=== PATIENT | male | born 1985 | race Caucasian/White ===

== ENCOUNTER 2018-12-22 16:42 | Emergency (ER) | payer SELFPAY ==
--- NOTE | 2018-12-22 17:11 | ER Document Report ---
ED Medical Screen (RME) - General Chief Complaint: Leg Injury Stated Complaint: LEFT LEG INJURY Time Seen by Provider: 12/22/18 17:08 Mode of Arrival: Ambulatory Information source: Patient Notes: 33-year-old male presented to ED for an abscess to the left upper leg just above the knee. 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 He states he has been using peroxide up to yesterday once a day. He states the area is gotten bigger and more painful so he came to the emergency room to have it examined. He is alert oriented respirations regular and unlabored speaking in full sentences. He states he smokes 2 packs of cigarettes a day, drinks weekly, and no illicit drugs. I have greeted and performed a rapid initial assessment of this patient. A comprehensive ED assessment and evaluation of the patient, analysis of test results and completion of medical decision making process will be conducted by an additional ED providers. TRAVEL OUTSIDE OF THE [place] IN LAST 30 DAYS: No Past Medical History - Past Medical History Cardiac Medical History: Reports: Hx Hypertension - Immunizations Hx Diphtheria, Pertussis, Tetanus Vaccination: No - unk Physical Exam - Vital signs Vitals: Temp Pulse Resp BP Pulse Ox 98.6 F 71 18 138/67 H 97 12/22/18 16:47 12/22/18 16:47 12/22/18 16:47 12/22/18 16:47 12/22/18 16:47 Course - Vital Signs Vital signs: Temp Pulse Resp BP Pulse Ox 98.6 F 71 18 138/67 H 97 12/22/18 16:47 12/22/18 16:47 12/22/18 16:47 12/22/18 16:47 12/22/18 16:47
--- NOTE | 2018-12-22 18:40 | RADIOLOGY REPORT (SQ) ---
EXAM DESCRIPTION: U/S EXTREMITY NONVASCULAR LTD COMPLETED DATE/TIME: 12/22/2018 6:18 pm REASON FOR STUDY: left leg above knee abscess COMPARISON: None. TECHNIQUE: Dynamic and static grayscale images acquired of the localized site of clinical concern an d recorded on PACS. Additional selected color Doppler and spectral images recorded. SITE OF CONCERN: Left knee LIMITATIONS: None. FINDINGS: SKIN AND SUBCUTANEOUS TISSUES: Diffuse subcutaneous edema with a 3.1 x 1.0 x 3.9 cm multil ocular complex fluid collection. No surrounding hyperemia or hypervascular wall. DEEP SOFT TISSUES/MUSCLES: Grossly normal. VASCULAR: No abnormalities demonstrated on the images provided. OTHER: No other significant finding. IMPRESSION: 3.1 x 1.0 x 3.9 cm subcutaneous multilocular complex fluid collection may represent absc ess versus hematoma. TECHNICAL DOCUMENTATION: JOB ID: [id number] [employer] in [place]- All Rights Reserved Reading location - IP/workstation name: [email or web address]
[2018-12-22] MEDS ORDERED: OXYCODONE-ACETAMINOPHEN 5-325 MG TABLET PO ONE (20:46)
[2018-12-22] MEDS ORDERED: CEPHALEXIN 500 MG CAPSULE PO ONE (20:47)
[2018-12-22] MEDS ORDERED: SULFAMETHOXAZOLE/TRIMETHOPRIM 800-160 MG TABLET PO ONE (20:47)
[2018-12-22] MEDS ORDERED: LIDOCAINE 1% INJ-PF (10 MG/ML) 30 ML SDV INFIL ONE (20:47)
--- NOTE | 2018-12-22 20:47 | ER Document Report ---
HPI - HPI Time Seen by Provider: 12/22/18 17:08 Pain Level: 3 Notes: Patient is an otherwise healthy 33-year-old male presenting to the emergency department with concern for abscess to his left knee. Patient reports this is been there several days. He does report it has been draining. 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 Denies any fevers or chills. - REPRODUCTIVE Reproductive: DENIES: : - MUSCULOSKELETAL Musculoskeletal: REPORTS: Extremity pain Past Medical History - General Information source: Patient - Social History Smoking Status: Current Every Day Smoker Frequency of alcohol use: None Drug Abuse: None Family History: Reviewed & Not Pertinent Patient has suicidal ideation: No Patient has homicidal ideation: No - Past Medical History Cardiac Medical History: Reports: Hx Hypertension - Immunizations Hx Diphtheria, Pertussis, Tetanus Vaccination: No - unk Vertical Provider Document - CONSTITUTIONAL Notes: PHYSICAL EXAMINATION: GENERAL: Well-appearing, well-nourished and in no acute distress. HEAD: Atraumatic, normocephalic. EYES: Pupils equal round extraocular movements intact, conjunctiva are normal. ENT: Nares patent NECK: Normal range of motion LUNGS: No respiratory distress Musculoskeletal: Normal range of motion NEUROLOGICAL: Normal speech, normal gait. PSYCH: Normal mood, normal affect. SKIN: Large area of erythema with induration fluctuance noted just superior to left knee. There is no streaking from the area. - INFECTION CONTROL TRAVEL OUTSIDE OF THE [place] IN LAST 30 DAYS: No Course - Re-evaluation Re-evalutation: Abscess was incised and drained, see procedure note, patient tolerated well. Large amount of purulent drainage obtained. Patient will be started on doxycycline for vibrio coverage as patient not only has an abscess but it has also been exposed to salt water. Patient verbalizes understanding and agreement with ED return precautions. The patient's emergency department workup and current diagnosis were explained to the patient and or family. Follow-up instructions were provided. Medications if prescribed were discussed. Instructions for when to return to the emergency department including specific worrisome symptoms were discussed with the patient and/or family. - Vital Signs Vital signs: Temp Pulse Resp BP Pulse Ox 98.6 F 71 18 138/67 H 97 12/22/18 16:47 12/22/18 16:47 12/22/18 16:47 12/22/18 16:47 12/22/18 16:47 Procedures - Incision and Drainage Left knee Type: Simple Anesthetic type: 1% Lidocaine Blade size: 11 I&D procedure: Betadine prep applied Incision Method: Incision made by scalpel Discharge - Discharge Clinical Impression: Abscess Condition: Stable Disposition: HOME, SELF-CARE Additional Instructions: You were seen for an abscess that required drainage. Please clean this area with soap and water twice daily and apply a topical antibiotic. Dress the area after each cleaning. Please return if you develop fever, vomiting, the pain at the site worsens, you notice spreading redness from the area, or you have any other symptoms that are concerning to you. Prescriptions: Doxycycline Hyclate 100 mg PO BID #14 capsule Hydrocodone Bit/Acetaminophen [Hydrocodon-Acetaminophen 5-325] 1 each PO Q6H #10 tablet
[2018-12-22 21:53] VITALS: BP 130/68
== END 2018-12-22 21:53 | disposition home or self-care (01) ==
LOC: ER 16:42
DX: L02.416 Cutaneous abscess of left lower limb (principal); F17.200 Nicotine dependence, unspecified, uncomplicated; I10 Essential (primary) hypertension
CPT/HCPCS: 76882; 10060; J3490; 99283

== ENCOUNTER 2020-02-20 18:30 | Emergency (ER) | payer SELFPAY ==
[2020-02-20 18:40] VITALS: BP 158/93
[2020-02-20] MEDS ORDERED: KETOROLAC TROMETHAMINE 60 MG/2 ML SDV IM ONE (18:43)
[2020-02-20] MEDS ORDERED: CYCLOBENZAPRINE HCL 10 MG TABLET PO ONE (18:43)
[2020-02-20] MEDS ORDERED: HYDROCODONE/ACETAMINOPHEN 5-325 MG TABLET PO ONE (18:43)
--- NOTE | 2020-02-20 18:49 | ER Document Report ---
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 Patient is not sure whether he may have injured himself while working. States he has had problems with his back in the past has never gone to orthopedics about it because he does not have insurance. Denies incontinence of urine or bowel. Denies perineal numbness. Pain is worse with movement. ROS: See HPI - all other systems were reviewed and are otherwise negative Constitutional: no fever : no dysuria Integumentary: no rash Allergy: no hives Musculoskeletal: no extremity pain or swelling, positive back pain Neurological: no numbness/tingling, no weakness MEDICATIONS: I agree with the patient medications as charted by the RN. ALLERGIES: I agree with the allergies as charted by the RN. PAST MEDICAL HISTORY/PAST SURGICAL HISTORY: Reviewed and agree as charted by RN. SOCIAL HISTORY: Reviewed and agree as charted by RN. FAMILY HISTORY: No significant familial comorbid conditions directly related to patient complaint EXAM: Reviewed vital signs as charted by RN. CONSTITUTIONAL: Alert and oriented and responds appropriately to questions. Well-appearing; well-nourished HEAD: Normocephalic; atraumatic EYES: Conjunctivae clear, sclerae non-icteric ENT: normal nose; no rhinorrhea; moist mucous membranes NECK: Supple without meningismus; non-tender; no cervical lymphadenopathy, no masses CARD: symmetric distal pulses RESP: Normal chest excursion without splinting or tachypnea ABD/GI: Normal bowel sounds; non-distended; soft, non-tender, no rebound, no guarding; no palpable organomegaly or masses. BACK: The back appears normal and is tender to palpation in the right lower lumbar musculature in the right paraspinous musculature, there is no CVA tenderness EXT: Normal ROM in all joints; non-tender to palpation; no cyanosis, no effusions, no edema SKIN: Normal color for age and race; warm; dry; good turgor; no acute lesions noted NEURO: Moves all extremities equally; Motor and sensory function intact. Strength equal 5/5 bilateral lower extremities. Sensation intact and equal bilateral lower extremities. Straight leg raise is negative. No saddle anesthesia on exam. DTRs 2+ intact and equal bilateral lower extremities. PSYCH: The patient's mood and manner are appropriate. Grooming and personal hygiene are appropriate. MDM: 34-year-old male presenting for right lower back pain over the last 5 days. No incontinence of urine or bowel, no perineal numbness on exam suggesting cauda equina. Has had problems with his back previously patient likely has a disc issue. I spoke with him at length about this he is aware that he will likely need orthopedic referral which she is resistant to because of a lack of insurance but patient is aware that if he continues to have issues he will need further treatment and orthopedics is where he will need to receive it. Patient will return for incontinence of urine or bowel. TRAVEL OUTSIDE OF THE [place] IN LAST 30 DAYS: No - Related Data Allergies/Adverse Reactions: No Known Allergies Allergy (Verified 12/22/18 17:09) Past Medical History - Social History Smoking Status: Unknown if Ever Smoked Family History: Reviewed & Not Pertinent - Past Medical History Cardiac Medical History: Reports: Hx Hypertension - Immunizations Hx Diphtheria, Pertussis, Tetanus Vaccination: No - unk Physical Exam - Vital signs Vitals: Temp Pulse Resp BP Pulse Ox 98.4 F 81 16 158/93 H 99 02/20/20 18:39 02/20/20 18:39 02/20/20 18:39 02/20/20 18:39 02/20/20 18:39 Course - Vital Signs Vital signs: Temp Pulse Resp BP Pulse Ox 98.4 F 81 16 158/93 H 99 02/20/20 18:39 02/20/20 18:39 02/20/20 18:39 02/20/20 18:39 02/20/20 18:39 - Laboratory Results Critical Laboratory Results Reviewed: No Critical Results - Radiology Results Critical Radiology Results Reviewed: No Critical Results Discharge - Discharge Clinical Impression: Lower back injury Qualifiers: Encounter type: initial encounter Qualified Code(s): S39.92XA - Unspecified injury of lower back, initial encounter Condition: Stable Disposition: HOME, SELF-CARE Instructions: Oral Narcotic Medication ([facility]), Low Back Pain ([facility]), Warm Packs ( [facility]) Additional Instructions: 1. Warm heat to the lower back twice daily 2. no heavy lifting for 2-3 days 3. medications as prescribed, no driving on narcotics or muscle relaxers 4. follow up with orthopedics for further evaluation and treatment as needed for any continuing pain or problems, call for appt. 5. return to the ER for any onset of incontinence of urine, fever > 101 or worsening condition Prescriptions: Cyclobenzaprine HCl [Flexeril 10 mg Tablet] 10 mg PO TIDP PRN #15 tab PRN Reason: Hydrocodone/Acetaminophen [Burton 5-325 mg Tablet] 1 tab PO Q4 PRN #15 tablet PRN Reason: Diclofenac Sodium [Voltaren 50 Mg Tablet.] 50 mg PO BID #20 tablet. Referrals: NATHANIEL COSTELLO MD [ACTIVE STAFF] - Follow up as needed
== END 2020-02-20 19:46 | disposition home or self-care (01) ==
LOC: ER 18:30
DX: S39.92XA Unspecified injury of lower back, initial encounter (principal); X58.XXXA Exposure to other specified factors, initial encounter; I10 Essential (primary) hypertension
CPT/HCPCS: 99284; 96372; J1885